=== PATIENT | female | born 1985 | race Caucasian/White ===

== ENCOUNTER 2017-05-25 17:37 | Inpatient (IN) | payer MEDICAID ==
[2015-05-26 06:53] VITALS: BMI 34.0
--- NOTE | 2017-05-25 17:51 | OBHP ---
Datetime: 05/25/2017 17:45 IP Adm Impression: Term, intrauterine ; Active labor IP Admit Plan: Admit to unit; Initiate labor protocol Admit Comment, IP Provider: at 40week came with ctxs started in am, irrg, 11/27,no vb, lof+fm obhx 3 x pmh den med pnv all nkda psh den soch de ve /-2 a/p at 40weeks in active labor admit to l_d npo/ivf labs pain maggie cont anne marie and efm anticipate Pelvic Type - PN: Adequate Extremities - PN: Normal Abdomen - PN: Normal Back - PN: Normal Breast - PN: Normal Lungs - PN: Normal Heart - PN: Normal Thyroid - PN: Normal Neurologic - PN: Normal HEENT - PN: Normal General - PN: Normal FHR - Baseline A Provider: 130 Contraction Comments Provider: q4-5 Comments, ACOG Physical Exam: gravid,non tender ext no edema,no calf ten ve /-2 IP Hx Assessment: The History has been Reviewed and is Current Vital Signs Provider: Reviewed; Within Normal Limits IP Chief Complaint: Uterine contractions NICHD Variability Prov Fetus A: Moderate 6-25bpm NICHD Accel Fetus A IP Provider: 15X15 FHR Category Provider Fetus A: Category I Dilatation, Provider: 4 Effacement, Provider: 90 Station, Provider: -2 Genitourinary Exam: Normal DTRs - PN: Normal
[2017-05-25] MEDS ORDERED: Lactated Ringer's 1,000 ML IV SCH (18:00)
[2017-05-25] MEDS ORDERED: Oxytocin 30 UNIT 30 UNITS/500 ML BAG IV SCH (18:00)
[2017-05-25 18:32] LABS: BASO % 0.4 % (0.0-2.0); EOS # 0.1 K/uL (0.0-0.7); EOS % 1.5 % (0.0-4.0); HEMOGLOBIN 10.6 g/dL (11.0-16.0); MEAN CORPUSCULAR HEMOGLOBIN 24.9 pg (27.0-31.0); MEAN CORPUSCULAR HGB CONC 32.8 g/dL (33.0-37.0); MEAN PLATELET VOLUME 11.7 fL (7.2-11.7); MONO # 0.6 K/uL (0.0-0.8); MONO % 6.7 % (0.0-10.0); NEUT # 6.2 K/uL (1.8-7.0); NEUT % 69.4 % (50.0-75.0); NRBC % 0.1 % (0.0-2.0); RBC 4.27 Mil/uL (3.80-5.20); RED CELL DISTRIBUTION WIDTH 17.6 % (11.5-14.5)
[2017-05-25 18:35] LABS: MEAN CELL VOLUME 75.8 fL (81.0-99.0)
[2017-05-25 18:47] LABS: ALBUMIN 3.3 g/dL (3.5-5.0); ALT/SGPT 30 U/L (9-52); AST/SGOT 20 U/L (14-36); BLOOD UREA NITROGEN 6 mg/dL (7-17); CALCIUM 8.2 mg/dl (8.6-10.4); GFR AFRICAN-AMERICAN > 60; GFR NON-AFRICAN AMERICAN > 60
[2017-05-25] MEDS ORDERED: Fentanyl/Bupivacaine HCl 250 ML EPI ONE (18:48)
[2017-05-25 19:16] LABS: SQUAMOUS EPITHIAL 4 /hpf (0-5); URINE BACTERIA RARE (<OCC); URINE BILIRUBIN NEGATIVE (NEGATIVE); URINE BLOOD NEGATIVE (NEGATIVE); URINE CLARITY Clear (Clear); URINE COLOR Yellow (YELLOW); URINE GLUCOSE (UA) NORMAL (Normal); URINE LEUKOCYTE ESTERASE NEG Leu/uL (Negative); URINE NITRATE NEGATIVE (NEGATIVE); URINE PROTEIN NEGATIVE (NEGATIVE); URINE UROBILINOGEN NORMAL mg/dL (0.2-1.0)
[2017-05-25] MEDS ORDERED: Benzocaine/Menthol 20%-0.5% Topical Spray (60 ml) TOP PRN (20:44)
[2017-05-25] MEDS ORDERED: Oxycodone/Acetaminophen 5/325 mg Tab PO PRN ×2 (20:44)
--- NOTE | 2017-05-25 20:44 | OBDS ---
DELIVERY PERSONNEL Delivery Doctor: Mika Apple MD Basic Acoustic Analyst: Zoë Carvalho RN Resident: Dr White MATERNAL INFORMATION Delivery Anesthesia: Epidural Medications in Delivery: pitocin Estimated Blood Loss (ml): 350 Placenta Cultured: No Maternal Complications: None RN Comments: baby girl delivered via , apgarsn 8/9. baby in good condition and being attended to by Dr Campbell Provider Comments: baby deliverd in kirsten. cord arround neck reduced. no com end clean 8/9 peads presemnt at the time of dellivery LABOR SUMMARY EDC: 05/23/2017 00:00 No. Babies in Womb: 1 Attempted: No Labor Anesthesia: Epidural LABOR INFORMATION Reason for Induction: Not Applicable Cervical Ripening Agents: Other Oxytocin: N/A Group B Beta Strep: Negative MEMBRANES Membranes Rupture Method: Artificial Rupture of Membranes: 05/25/2017 18:06 Length of Rupture (hrs): 2.32 Amniotic Fluid Color: Clear Amniotic Fluid Amount: Moderate Amniotic Fluid Odor: Normal STAGES OF LABOR Stage 3 hrs: 0 Stage 3 min: 8 VAGINAL DELIVERY Episiotomy: None Laceration Extension: First Degree Laceration Type: Perineal Laceration Repair: Yes Laceration Repair Note: repaired with 3 chromic Initial Vag Sponge Count: 10 Final Vag Sponge Count: 10 Initial Vag Sharps Count: 0 Final Vag Sharps Count: 1 Sponge Count Correct: Yes Sharps Count Correct: Yes BABY A INFORMATION Delivery Date/Time: 05/25/2017 20:25 Method of Delivery: Vaginal Born in Route : No : N/A Forceps: N/A Vacuum Extraction: N/A Shoulder Dystocia : No SHOULDER DYSTOCIA BABY A Delivery Date/Time: 05/25/2017 20:25 PRESENTATION/POSITION BABY A Presentation: Cephalic Cephalic Presentation: Vertex Vertex Position: Right Occipital Anterior Breech Presentation: N/A PLACENTA INFORMATION BABY A Placenta Delivery Time : 05/25/2017 20:33 Placenta Method of Delivery: Spontaneous Placenta Status: Delivered SCORES BABY A Heart Rate 1 min: >100 bpm Resp Effort 1 min: Slow, Irregular Reflex Irritability 1 min: Cough or Sneeze or Pulls Away Muscle Tone 1 min: Active Motion Color 1 min: Body [place], Extremities Blue Resuscitation Effort 1 min: Tactile Stimulation SCORE 1 MIN: 8 Heart Rate 5 min: >100 bpm Resp Effort 5 min: Good Cry Reflex Irritability 5 min: Cough or Sneeze or Pulls Away Muscle Tone 5 min: Active Motion Color 5 min: Body [place], Extremities Blue Resuscitation Effort 5 min: N/A SCORE 5 MIN: 9 INFANT INFORMATION BABY A Gestational Age at Delivery: 40.2 Gestational Status: Term Outcome : Liveborn Condition : Fair Sex: Female IDENTIFICATION/MEDS BABY A ID Band Number: [id number] ID Band Location: Left Leg; Left Arm Sensor Applied: Yes Sensor Number: [id number] Sensor Location : Cord Clamp WEIGHT/LENGTH BABY A Infant Birthweight (gms): 3605 Infant Weight (lb): 7 Weight (oz): 15 Length Inches: 20.00 Infant Length cms: 50.8 CORD INFORMATION BABY A No. Cord Vessels: 3 Nuchal Cord : Around Neck x1, Loose Cord Blood Taken: Yes Suction: Mouth; Nose ASSESSMENT BABY A Complications: None Physical Findings at Delivery: Within Normal Limits Infant Respirations: Appears Normal Binder Chainstitch/ALS Called : Yes Care By: Dr Campbell called to attend to infant Transferred To: Remains with Mother
--- NOTE | 2017-05-25 20:44 | OBPN ---
Datetime: 05/25/2017 19:42 IP Progress Impression: Normal progression of labor IP Procedures: Sterile Vag Exam Contraction Comments Provider: irrg FHR - Baseline A Provider: 130 IP Progress Note Comment: pt was examined at bed side ve fd/100/0 anticipate pushing Vital Signs Provider: Reviewed; Within Normal Limits NICHD Variability Prov Fetus A: Moderate 6-25bpm Datetime: 05/25/2017 17:45 NICHD Accel Fetus A IP Provider: 15X15 FHR Category Provider Fetus A: Category I Dilatation, Provider: 4 Effacement, Provider: 90 Station, Provider: -2
[2017-05-25] MEDS ORDERED: Oxytocin 10 Units/ml Inj ONE (21:44)
[2017-05-26 08:14] LABS: HEMOGLOBIN 9.1 g/dL (11.0-16.0); MEAN CELL VOLUME 75.6 fL (81.0-99.0); MEAN CORPUSCULAR HGB CONC 33.1 g/dL (33.0-37.0); MEAN PLATELET VOLUME 10.9 fL (7.2-11.7); RBC 3.64 Mil/uL (3.80-5.20); RED CELL DISTRIBUTION WIDTH 17.4 % (11.5-14.5)
[2017-05-26 08:20] LABS: WHITE BLOOD COUNT 15.5 K/uL (4.8-10.8)
[2017-05-26 08:29] VITALS: O2SAT 100
--- NOTE | 2017-05-26 18:27 | OBPPN ---
Datetime: 05/26/2017 07:34 PP Pain Prov: Within normal limits PP Nausea Prov: Denies PP Flatus Prov: No PP BM Prov: No PP Heart Prov: Normal PP Lungs Prov: Normal PP Abdomen/Uterus Prov: Normal PP Lochia Prov: Normal PP Vulva/Perineum Prov: Normal PP Extremities Prov: Normal PP Progress Prov: Not Applicable PP Comments Phys Exam Prov: Abdomen: soft, nontender, fundus firm 1 fingerbreath above umbilicus PP Impression Prov: Normal progression PP Plan Prov: Continue present management PP Progress Note Prov: Patient seen and examined at bedside. Patient says she has lower abdominal pa in which she rates an 8/10, but has not taken pain medicaion for yet. Patient denies nausea and vomit ing and is eating well. Patient has walked around in the room. Patient urinating well. Patient has edgar d no gas or bowel movement. Patient used 4 pads overnight. Patient is only bottle feedings because sh e does not want to breast feed. VS: T: 99.4 BP: 122/76 P: 62 PE: Gen: NAD Heart: RRR, +S1, S2 Lungs: CTABL Abdomen: soft, nontender, fundus firm 1 fingerbreath above umbilicus Ext: no clubbing, cyanosis, or edema A_P: 31 y/o F s/p at 40 weeks PPD#1 1. stable, afebrile 2. pain management with Motrin and Percocey 3. encourage ambulation and hydration 4. encourage breast feeding 5. discussed with Dr. Hector Johnson, PGY1 patient examined.agree with resident exam, assessment and plan Vital Signs Provider PP: Reviewed
--- NOTE | 2017-05-27 07:18 | OBPPN ---
Datetime: 05/27/2017 07:15 PP Pain Prov: Within normal limits PP Nausea Prov: Denies PP Flatus Prov: Yes PP Abdomen/Uterus Prov: Normal PP Lochia Prov: Normal PP Extremities Prov: Normal PP Comments Phys Exam Prov: fudus below umbl;icuis ext no edema,no calf ten PP Impression Prov: Normal progression PP Plan Prov: Discharge PP Progress Note Prov: pt was seen at bed side, paimn under control,no n/v, tolerating deit , voidin g,min lochia, flatus+ ppd#2 s/p navd dc home no sex motrin prn f/u in 6week Vital Signs Provider PP: Reviewed; Within Normal Limits
--- NOTE | 2017-05-27 07:18 | OBDCSUM ---
Datetime: 05/27/2017 07:16 Discharged to, Provider: Home Follow up at, Provider: 6week Discharge Diagnosis, Provider: Term Delivered Follow up in weeks, Provider: clinic Disch Activity Restrictions: No exercising; No lifting; No driving; Minimize walking; Minimize stair -climbing; No sexual activity; Nothing in vagina - [place], tampons, douche Discharge Comment, Provider: no sex motrin prn f/u in 6week
[2017-05-27 10:03] VITALS: BP 115/74
[2017-05-27 15:16] VITALS: PULSE 61; RESP 20; TEMP 97.6
== END 2017-05-27 11:05 | disposition home or self-care (01) | DRG 373 ==
LOC: C.EROB 17:37 → C.4D 17:49 → C.4M 05-26 00:31
PROVIDERS: ADMIT Obstetrics & Gynecology; ATTEND Obstetrics & Gynecology
PROC: 0HQ9XZZ Repair Perineum Skin, External Approach (ICD-10-PCS; principal; 2017-05-25)
PROC: 10E0XZZ Delivery of Products of Conception, External Approach (ICD-10-PCS; 2017-05-25)
DX: O69.81X0 Labor and delivery complicated by cord around neck, without compression, not applicable or unspecified (principal); O48.0 Post-term pregnancy; O70.0 First degree perineal laceration during delivery; Z3A.40 40 weeks gestation of pregnancy; Z37.0 Single live birth

== ENCOUNTER 2018-04-11 03:02 | Emergency (ER) | payer SELFPAY ==
[2018-04-11 03:03] VITALS: BMI 34.0
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
[2018-04-11] MEDS ORDERED: Bacitracin 500 Units/gm Oint Foilpak UD ONE (04:59)
[2018-04-11 06:04] VITALS: BP 133/86; PULSE 75; RESP 20; TEMP 97.9; O2SAT 99
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
--- NOTE | 2018-04-11 10:39 | CT ---
Date of service: 04/11/2018 PROCEDURE: CT MAXILLOFACIAL BONES WITHOUT CONTRAST HISTORY: pain, facial, nasal bones COMPARISON: None available. TECHNIQUE: Contiguous axial CT images of the maxillofacial bones were obtained. Coronal and sagittal reformats were generated. Radiation dose: Total exam DLP = 720.21 mGy-cm. This CT exam was performed using one or more of the following dose reduction techniques: Automated exposure control, adjustment of the mA and/or kV according to patient size, and/or use of iterative reconstruction technique. FINDINGS: NASAL BONES: Unremarkable. ORBITS: Unremarkable. PARANASAL SINUSES/ MASTOIDS: Chronic ethmoid sinusitis. Minimal chronic bilateral maxillary sinusitis. No fluid collection. MAXILLA: Unremarkable. MANDIBLE/ TEMPOROMANDIBULAR JOINTS: Unremarkable. SKULL BASE: Unremarkable. TEMPORAL BONES: Middle ears and mastoid grossly unremarkable. OTHER FINDINGS: None. IMPRESSION: No acute maxillofacial fracture. Chronic paranasal sinusitis. Otherwise unremarkable examination. The preliminary findings for this examination were reported by [facility] at 4:55 a.m. on 04/11/2018. There is concurrence of this report with the preliminary findings.
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
== END 2018-04-11 06:05 | disposition home or self-care (01) ==
LOC: C.ER 03:02 → SUPCPDRO 03:02 → C.ER 06:05
DX: S80.211A Abrasion, right knee, initial encounter (principal); T14.8XXA Other injury of unspecified body region, initial encounter; Y04.0XXA Assault by unarmed brawl or fight, initial encounter